=== PATIENT | male | born 1960 | race Caucasian/White ===

== ENCOUNTER 2017-01-01 13:21 | Emergency (ER) | payer BC ==
[2017-01-01 14:39] VITALS: BP 171/90
[2017-01-01] MEDS ORDERED: Ketorolac INJ* 60 MG/2 ML VIAL IM ONE (14:54)
[2017-01-01] MEDS ORDERED: Ondansetron ODT TAB* 4 MG PO ONE (14:54)
--- NOTE | 2017-01-01 14:59 | UC ---
UC General HPI - HPI Summary HPI Summary: Patient has had fever, body aches, n/v/d. cough and tight chest for the past few days. Decreased PO fluids and food due to nausea. he has a hx of smoking - History of Current Complaint Chief Complaint: UCGeneralIllness Stated Complaint: COUGH/DIZZY/CHILLS/BODY ACHES Time Seen by Provider: 01/01/17 14:48 Hx Obtained From: Patient Onset/Duration: Sudden Onset, Lasting Days Timing: Constant Onset Severity: Moderate Current Severity: Moderate Associated Signs & Symptoms: Positive: Cough, Dizziness, Diarrhea, Decreased Oral Intake, Fever, Headache, Nausea, Vomiting, Wheezing - Allergy/Home Medications Allergies/Adverse Reactions: Allergies Allergy/AdvReac Type Severity Reaction Status Date / Time No Known Allergies Allergy Verified 01/01/17 14:33 PMH/Surg Hx/FS Hx/Imm Hx Previously Healthy: Yes - Surgical History Surgical History: Yes Surgery Procedure, Year, and Place: LEFT SHOULDER REPLACMENT, RIGHT SHOULDER SCOPING, BOTH knee surgeries, Left 4th TOE AMPUTATION DUE TO INJURY, stimulator back, right knee replacement 06/2016 - Family History Known Family History: Positive: Cardiac Disease - parents, Hypertension - parents, Diabetes - parents - Social History Alcohol Use: Weekly Substance Use Type: None Substance Use Comment - Amount & Last Used: Last used in May Smoking Status (MU): Heavy Every Day Tobacco Smoker Amount Used/How Often: 1 PPD Length of Time of Smoking/Using Tobacco: 35 years Household Exposure Type: Cigarettes - Immunization History Most Recent Influenza Vaccination: 2013 Most Recent Tetanus Shot: within last 10 years Most Recent Pneumonia Vaccination: never Review of Systems Constitutional: Fever, Chills, Fatigue Skin: Negative Eyes: Negative Respiratory: Shortness Of Breath, Cough Cardiovascular: Negative Gastrointestinal: Vomiting, Diarrhea, Nausea Genitourinary: Negative Motor: Negative Neurovascular: Negative Musculoskeletal: Arthralgia, Myalgia Neurological: Headache Psychological: Negative All Other Systems Reviewed And Are Negative: Yes Physical Exam Triage Information Reviewed: Yes Appearance: Well-Nourished, Ill-Appearing, Pain Distress Vital Signs: Initial Vital Signs Temp 102.6 F 01/01/17 14:34 Pulse 120 01/01/17 14:34 Resp 18 01/01/17 14:34 BP 171/90 01/01/17 14:34 Pulse Ox 97 01/01/17 14:34 Vital Signs Reviewed: Yes Eye Exam: Normal Eyes: Positive: Conjunctiva Clear ENT: Positive: Pharyngeal erythema, TMs normal, Muffled/hoarse voice Dental Exam: Normal Neck exam: Normal Neck: Positive: Supple, Nontender, No Lymphadenopathy Respiratory: Positive: Chest non-tender, Normal breath sounds, No respiratory distress, Wheezing, Inspiration Cardiovascular Exam: Normal Cardiovascular: Positive: No Murmur, Pulses Normal, Tachycardia Abdominal Exam: Normal Abdomen Description: Positive: Nontender, No Organomegaly, Soft Bowel Sounds: Positive: Present Musculoskeletal Exam: Normal Musculoskeletal: Positive: Strength Intact, ROM Intact, No Edema Neurological Exam: Normal Neurological: Positive: Alert, Muscle Tone Normal Psychological Exam: Normal Skin Exam: Normal Course/Dx - Course Course Of Treatment: hx obtained, exam performed ,meds reviewed, rapid flu obtained, toradol and zofran given. - Differential Dx - Multi-Symptom Provider Diagnoses: LLL pneumonia. COPD. FEVER Discharge - Discharge Plan Condition: Stable Disposition: HOME Prescriptions: DOXYcycline CAP(*) [DOXYcycline 100MG CAP(*)] 100 mg PO BID #14 cap Ondansetron ODT TAB* [Zofran 4 MG Odt TAB*] 4 mg PO Q6H PRN #6 tab.odt PRN Reason: Nausea Patient Education Materials: Community Acquired Pneumonia (ED) Additional Instructions: 1. take the medication as prescribed. 2. REst 3. Tylenol for fever 4. Encourage fluid intake 5. Follow up with primary or ER if no improvement in 24-48 hours
--- NOTE | 2017-01-01 15:27 | RAD ---
HISTORY: Fever, cough, shortness of breath COMPARISONS: October 01, 2015 VIEWS: 4: Frontal dual-energy and lateral views of the chest. FINDINGS: CARDIOMEDIASTINAL SILHOUETTE: The cardiomediastinal silhouette is normal. CAT: The cat are normal. PLEURA: The costophrenic angles are sharp. No pleural abnormalities are noted. LUNG PARENCHYMA: The lungs are clear. ABDOMEN: The upper abdomen is clear. There is no subphrenic gas. BONES AND SOFT TISSUES: A spinal stimulator lead is noted OTHER: None. IMPRESSION: NO ACTIVE CARDIOPULMONARY DISEASE.
== END 2017-01-01 15:40 | disposition home or self-care (01) ==
LOC: UCCORT 13:21
DX: J18.9 Pneumonia, unspecified organism (principal); J44.9 Chronic obstructive pulmonary disease, unspecified; R50.9 Fever, unspecified; Z96.612 Presence of left artificial shoulder joint; Z96.651 Presence of right artificial knee joint; Z89.422 Acquired absence of other left toe(s); F17.210 Nicotine dependence, cigarettes, uncomplicated
CPT/HCPCS: 71020; 87502; 96372; 99212; A9270-GY; G0463; J1885

== ENCOUNTER 2017-07-15 14:21 | Emergency (ER) | payer BC ==
--- OUTSIDE RECORDS SUMMARY | 2017-07-15 15:23 | XMS REPORT ---
:1960 External Reference #:[id number] Author Organization [facility] [employer] Address [address] [place] [address] Phone [phone] Care Team Providers Name Role Phone Allyssa Hudson MD Care Team Information Field Installer Unavailable Allyssa Hudson MD Primary Care Physician Unavailable Payers Type Date Identification Numbers Payment Provider Subscriber Commercial Policy Number: [id number] [facility] Steven Holt PayID: [id number] [address] [address] [place] [address] Problems Description No Information Family History Date Family Member(s) Problem(s) Comments General Diabetes Social History Type Date Description Comments 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 Fluticasone 06/16/ Active Suspension 50mcg/Act 1unit 2 sprays Rajesh, Propionate 2017 s each nostril Silas, every day M.D. Gabapentin / Active Capsules 300mg 1 by mouth Unknown 0000 every day Pravastatin / Active Tablets 20mg 1 by mouth Unknown Sodium 0000 every day Fluoxetine HCL / Active Capsules 40mg daily Unknown 0000 Enalapril / Active Tablets 10mg once a day Unknown Maleate 0000 Pantoprazole / Active Solution 40mg daily Unknown Sodium 0000 Rec Seroquel / Active Tablets 25mg 1 by mouth Unknown 0000 one hour prior to sleep, if no improvement in 5 days may try two by mouth as needed upt o 4 at night Glimepiride / Active Tablets 2mg 1 by mouth Unknown 0000 every day Lantus / Active Solution 100Unit/M as directed Unknown 0000 L Amoxicillin / Active Capsules 250mg 1 by mouth Unknown 0000 three times a day Enalapril / Hx Tablets 10mg Unknown Maleate 0000 - 2017 Metformin HCL / Hx Tablets 500mg 180ta 1 po bid Unknown 0000 - bs 2017 Oxycodone HCL / Hx Tablets 15mg 30tab one tab q6h Unknown 0000 - s prn for . 2017 Crestor / Hx Tablets 10mg Unknown 0000 - 2017 Lansoprazole / Hx Capsules DR 30mg 90cap 1 po qd Unknown 0000 - s 2017 Oxycontin / Hx Tablets ER 40mg Unknown 0000 - 12HR 2017 Vital Signs Date Vital Result Comment 07/14/2017 Weight 277.12 lb Height 72 inches 6'0" BMI (Body Mass Index) 37.6 kg/m2 BP Systolic 145 mmHg BP Diastolic 97 mmHg Heart Rate 87 /min O2 % BldC Oximetry 98 % room air Body Temperature 98.3 F [place] Score 9 Pain Level 0 06/16/2017 Weight 272.12 lb Height 72 inches 6'0" BMI (Body Mass Index) 36.9 kg/m2 BP Systolic 150 mmHg BP Diastolic 88 mmHg Heart Rate 98 /min O2 % BldC Oximetry 99 % Body Temperature 97.8 F [place] Score 12 Pain Level 0 05/27/2011 Weight 265.00 lb Height 72 inches 6'0" BMI (Body Mass Index) 35.9 kg/m2 BP Systolic 152 mmHg BP Diastolic 80 mmHg Heart Rate 84 /min O2 % BldC Oximetry 96 % Body Temperature 97.9 F Results Description No Information Procedures Description No Information Encounters Type Date Location Provider CPT E/M Dx Office Visit 07/14/2017 11:30a [place] [address] G47.33 H65.03 Office Visit 06/16/2017 10:00a [place] [address] G47.33 J34.3 H69.93 Office Visit 05/27/2011 3:30p [place] [address] 327.23 Plan of Care Future Appointment(s):08/03/2017 1:00 pm - Radha Mcnulty NP at Main Office
--- OUTSIDE RECORDS SUMMARY | 2017-07-15 15:23 | XMS REPORT ---
:1960 External Reference #:[id number] Author Organization [facility] [employer] Design [employer] Address [address] [place] [address] Phone [phone] Care Team Providers Name Role Phone Allyssa Hudson MD Care Team Information Senior Coldfusion Developer Unavailable Allyssa Hudson MD Primary Care Physician Unavailable Payers Type Date Identification Numbers Payment Provider Subscriber Commercial Policy Number: [id number] [facility] Steven Holt PayID: [id number] [address] [address] [place] [address] Problems Description No Information Family History Date Family Member(s) Problem(s) Comments General Diabetes Social History Type Date Description Comments Marital Status Occupation [employer] Cigarette Use Current Cigarette Smoker 1 Pack Daily ETOH Use 4-7 Days Per Week Recreational Drug Use Has Used In Past Allergies, Adverse Reactions, Alerts Date Description Reaction Status Severity Comments 05/27/2011 NKDA active Medications Medication Date Status Form Strength Qnty SIG Indications Ordering Provider Fluticasone 06/16/ Active Suspension 50mcg/Act 1unit 2 sprays Mena, Propionate 2017 s each nostril Silas, every [...] 100Unit/M as directed Unknown 0000 L Amoxicillin 00/00/ Active Capsules 250mg 1 by mouth Unknown [...] % room air Body Temperature 98.3 F [place] Score 9 Pain Level 0 06/16/2017 Weight 272.12 lb Height 72 inches 6'0" BMI (Body Mass Index) 36.9 kg/m2 BP Systolic 150 mmHg BP Diastolic 88 mmHg Heart Rate 98 /min O2 % BldC Oximetry 99 % Body Temperature 97.8 F [place] Score 12 Pain Level 0 05/27/2011 Weight 265.00 lb Height 72 inches 6'0" BMI (Body Mass Index) 35.9 kg/m2 BP Systolic 152 mmHg BP Diastolic 80 mmHg Heart Rate 84 /min O2 % BldC Oximetry 96 % Body Temperature 97.9 F Results Description No Information Procedures Description No Information Encounters Type Date Location Provider CPT E/M Dx Office Visit 06/16/2017 10:00a [place] [address] G47.33 J34.3 H69.93 Office Visit 05/27/2011 3:30p [place] [address] 327.23 Plan of Care No Information Available
--- OUTSIDE RECORDS SUMMARY | 2017-07-15 15:26 | XMS REPORT ---
:1960 External Reference #:[id number] Author Organization [facility] [employer] Model Maker And Tester Address [address] [place] [address] Phone [phone] Care Team Providers Name Role Phone Allyssa Hudson MD Care Team Information Automotive Project Engineer Unavailable Allyssa Hudson MD Primary Care Physician Unavailable Payers Type Date Identification Numbers Payment Provider Subscriber Commercial Policy Number: [id number] [facility] Steven Holt PayID: [id number] [address] [address] [place] [address] Problems Description No Information Family History Date Family Member(s) Problem(s) Comments General Diabetes Social History Type Date Description Comments Marital 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 2018 Crestor / Hx Tablets 10mg Unknown 0000 - 2017 Lansoprazole / Hx Capsules DR 30mg 90cap 1 po qd Unknown 0000 - s 2017 Oxycontin / Hx Tablets ER 40mg Unknown 0000 - 12HR 2017 Vital Signs Date Vital Result Comment 06/16/2017 Weight 272.12 lb Height 72 inches 6'0" BMI (Body Mass Index) 36.9 kg/m2 BP Systolic 150 mmHg BP Diastolic 88 mmHg Heart Rate 98 /min O2 % BldC Oximetry 99 % Body Temperature 97.8 F [place] Score 12 Pain Level 0 05/27/2011 Weight [...] 06/16/2017 10:00a [place] [address] G47.33 J34.3 H69.93 Office Visit 05/27/2011 3:30p [place] [address] 327.23 Plan of Care Future Appointment(s):07/12/2017 10:30 am - Radha Mcnulty NP at Main Office
--- OUTSIDE RECORDS SUMMARY | 2017-07-15 15:26 | XMS REPORT ---
:1960 External Reference #:[id number] Author Organization [facility] Quality System Manager Address [address] [place] [address] Phone [phone] Care Team Providers Name Role Phone Allyssa Hudson MD Care Team Information Street Light Lamp Cleaner Unavailable Allyssa Hudson MD Primary Care Physician Unavailable Payers Type Date Identification Numbers Payment Provider Subscriber Commercial Policy Number: [id number] [facility] Steven Wur PayID: [id number] [address] [address] [place] [address] Problems Description No Information Family History Date Family Member(s) Problem(s) Comments General Diabetes Social History Type Date Description Comments 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 Cigarette Use Current Cigarette Smoker 1 Pack Daily ETOH Use 4-7 Days Per Week Recreational Drug Use Has Used In Past Allergies, Adverse Reactions, Alerts Date Description Reaction Status Severity Comments 05/27/2011 NKDA active Medications Medication Date Status Form Strength Qnty SIG Indications Ordering Provider Gabapentin 00/00/ Active Capsules 300mg 1 by mouth Unknown 0000 every day Pravastatin 00/00/ Active Tablets 20mg 1 by mouth Unknown Sodium 0000 every day Fluoxetine HCL / Active Capsules 40mg daily Unknown 0000 Enalapril 00/ Active Tablets 10mg once a day Unknown Maleate 0000 Pantoprazole 0000/ Active Solution 40mg daily Unknown Sodium 0000 Rec Seroquel 00/ Active Tablets 25mg 1 by mouth Unknown 0000 one hour prior to sleep, if no improvement in 5 days may try two by mouth as needed upt o 4 at night Glimepiride 00/00/ Active Tablets 2mg 1 by mouth Unknown 0000 every day Lantus 0000/ Active Solution 100Unit/ML as directed Unknown 0000 Enalapril /00/ Hx Tablets 10mg Unknown Maleate 0000 - 2017 Metformin HCL / Hx Tablets 500mg 180ta 1 po bid Unknown 0000 - bs 2017 Oxycodone HCL / Hx Tablets 15mg 30tab one tab q6h Unknown 0000 - s prn for . 2018 Crestor / Hx Tablets 10mg Unknown 0000 - 2017 Lansoprazole / Hx Capsules 30mg 90cap 1 po qd Unknown 0000 - DR s 2017 Oxycontin / Hx Tablets ER 40mg Unknown 0000 - 12HR 2017 Vital Signs Date Vital Result Comment 06/16/2017 Weight 272.12 lb Height 72 inches 6'0" BMI (Body Mass Index) 36.9 kg/m2 BP Systolic 150 mmHg BP Diastolic 88 mmHg Heart Rate 98 /min O2 % BldC Oximetry 99 % Body Temperature 97.8 F [place] Score 12 Pain Level 0 05/27/2011 Weight 265.00 lb Height 72 inches 6'0" BMI (Body Mass Index) 35.9 kg/m2 BP Systolic 152 mmHg BP Diastolic 80 mmHg Heart Rate 84 /min O2 % BldC Oximetry 96 % Body Temperature 97.9 F Results Description No Information Procedures Description No Information Encounters Type Date Location Provider CPT E/M Dx Office Visit 05/27/2011 3:30p [place] [address] 327.23 Plan of Care No Information Available
[2017-07-15 15:33] VITALS: BP 137/84
--- NOTE | 2017-07-15 15:53 | UC ---
Skin Complaint HPI - HPI Summary HPI Summary: 56 yo male with right middle finger pain and swelling x 3 days He has DM - History of Current Complaint Chief Complaint: UCSkin Time Seen by Provider: 07/15/17 15:34 Stated Complaint: MIDDLE FINGER RIGHT HAND COMP Hx Obtained From: Patient Onset/Duration: Gradual Onset, Lasting Days Skin Exposure Onset/Duration: Hours Ago, Days Ago Onset Severity: Mild Current Severity: Moderate Pain Intensity: 1 Pain Scale Used: 0-10 Numeric Location: Discrete Character: Pain, Redness, Raised, Painful Aggravating Factor(s): Touch Alleviating Factor(s): Other - elevation - Allergy/Home Medications Allergies/Adverse Reactions: Allergies Allergy/AdvReac Type Severity Reaction Status Date / Time No Known Allergies Allergy Verified 07/15/17 15:29 Home Medications: Home Medications Amoxicillin PO (*) [Amoxicillin 875 MG (*)] 875 mg PO BID 07/15/17 [History Confirmed 07/15/17] Naltrexone TAB* 100 mg PO DAILY 07/15/17 [History Confirmed 07/15/17] Review of Systems Constitutional: Negative Skin: Negative Eyes: Negative ENT: Negative Respiratory: Negative Cardiovascular: Negative Gastrointestinal: Negative Genitourinary: Negative Motor: Negative Neurovascular: Negative Musculoskeletal: Negative Neurological: Negative Psychological: Negative Is Patient Immunocompromised?: No All Other Systems Reviewed And Are Negative: Yes PMH/Surg Hx/FS Hx/Imm Hx Endocrine History: Diabetes, Dyslipidemia Cardiovascular History: Cardiac Disease, Hypertension GI/ History: Gastroesophageal Reflux Psychological History: Anxiety - Surgical History Surgical History: Yes Surgery Procedure, Year, and Place: LEFT SHOULDER REPLACMENT, RIGHT SHOULDER SCOPING, BOTH knee surgeries, Left 4th TOE AMPUTATION DUE TO INJURY, stimulator back, right knee replacement 06/2016 - Family History Known Family History: Positive: Cardiac Disease - parents, Hypertension - parents, Diabetes - parents - Social History Alcohol Use: None Substance Use Type: None Substance Use Comment - Amount & Last Used: Last used in May Smoking Status (MU): Heavy Every Day Tobacco Smoker Type: Cigarettes Amount Used/How Often: 1 PPD Length of Time of Smoking/Using Tobacco: 35 years Household Exposure Type: Cigarettes - Immunization History Most Recent Influenza Vaccination: 2013 Most Recent Tetanus Shot: within last 10 years Most Recent Pneumonia Vaccination: never Physical Exam Triage Information Reviewed: Yes Appearance: Well-Appearing, No Pain Distress, Well-Nourished Vital Signs: Initial Vital Signs Temp 98.5 F 07/15/17 15:25 Pulse 81 07/15/17 15:25 Resp 18 07/15/17 15:25 BP 137/84 07/15/17 15:25 Pulse Ox 98 07/15/17 15:25 Vital Signs Reviewed: Yes Eyes: Positive: Conjunctiva Clear ENT: Negative: Nasal congestion, Nasal drainage, Muffled voice, Hoarse voice Neck: Positive: Supple, Nontender, No Lymphadenopathy Respiratory: Positive: Lungs clear, Normal breath sounds, No respiratory distress, No accessory muscle use Cardiovascular: Positive: RRR, No Murmur Musculoskeletal: Positive: ROM Intact, No Edema Neurological: Positive: Alert Psychological Exam: Normal Skin Exam: Other - see image Course/Dx - Diagnoses Provider Diagnoses: paronychia right middle finger Procedures - Procedure Summary Procedure Summary: Incision and drainage of right middle finger PARONYCHIA Time out sterile prep no analgesic incised with 18 guage needle 3 drops of yonis pus expressed tolerated procedure well bandaid Discharge - Discharge Plan Condition: Stable Disposition: HOME Prescriptions: Doxycycline Hyclate 100 mg PO BID #14 tablet. Patient Education Materials: Paronychia (ED) Referrals: Allyssa Hudson MD [Primary Care Provider] - 3 Days (if not better ) Images Hands: 1 - red/swollen/pointing
== END 2017-07-15 16:03 | disposition home or self-care (01) ==
LOC: UCCORT 14:21
DX: L03.011 Cellulitis of right finger (principal); E11.9 Type 2 diabetes mellitus without complications; F17.210 Nicotine dependence, cigarettes, uncomplicated
CPT/HCPCS: 10060; 87070; 87076; 87077; 87186; 87205; 87640; 87641; 99212; G0463

== ENCOUNTER 2017-12-09 15:36 | Emergency (ER) | payer BC ==
[2017-12-09 16:20] VITALS: BP 151/87
--- NOTE | 2017-12-09 16:49 | UC ---
Lower Extremity/Ankle HPI - HPI Summary HPI Summary: Pt c/o sudden onset or right foot pain, that began yesterday morning at base of left second and third toes. Pt c/o left foot swelling, rde streaking from base of left second and third twos that has begun to extend proximally to travel up medial aspect of left ankle. Pt has neuropathy and reports tht he has limited feeling in feet. Is concerned about DVT. - History of Current Complaint Chief Complaint: UCLowerExtremity Stated Complaint: LEFT FOOT PAIN Time Seen by Provider: 12/09/17 16:30 Hx Obtained From: Patient Onset/Duration: Sudden Onset, Lasting Days, Worse Since - osnet Severity Initially: Mild Severity Currently: Moderate Pain Intensity: 7 Aggravating Factor(s): Standing, Ambulation Alleviating Factor(s): Nothing Able to Bear Weight: Yes - Risk Factors Gout Risk Factors: Age Over 40, Male, Diabetes, Hypertension, Hyperlipidemia, Obesity DVT Risk Factors: Family Hx of Clotting Disorder Septic Arthritis Risk Factor: Negative - Allergies/Home Medications Allergies/Adverse Reactions: Allergies Allergy/AdvReac Type Severity Reaction Status Date / Time No Known Allergies Allergy Verified 12/09/17 16:16 Home Medications: Home Medications Ibuprofen TAB* [Advil TAB*] 600 mg PO Q6H PRN 12/09/17 [History Confirmed ] PMH/Surg Hx/FS Hx/Imm Hx Previously Healthy: Yes Endocrine History: Diabetes, Dyslipidemia Cardiovascular History: Hypertension - Surgical History Surgical History: Yes Surgery Procedure, Year, and Place: LEFT SHOULDER REPLACMENT, RIGHT SHOULDER SCOPING, BOTH knee surgeries, Left 4th TOE AMPUTATION DUE TO INJURY, stimulator back, right knee replacement 06/2016 - Family History Known Family History: Positive: Cardiac Disease - parents, Hypertension - parents, Diabetes - parents - Social History Occupation: Employed Full-time Lives: With Family Alcohol Use: None Substance Use Type: None Substance Use Comment - Amount & Last Used: Last used in May Smoking Status (MU): Heavy Every Day Tobacco Smoker Type: Cigarettes Amount Used/How Often: 1 PPD Length of Time of Smoking/Using Tobacco: 35 years Have You Smoked in the Last Year: Yes Household Exposure Type: Cigarettes - Immunization History Most Recent Influenza Vaccination: 2013 Most Recent Tetanus Shot: within last 10 years Most Recent Pneumonia Vaccination: never Review of Systems Constitutional: Negative Skin: Other - erythema Eyes: Negative ENT: Negative Respiratory: Negative Cardiovascular: Negative Gastrointestinal: Negative Genitourinary: Negative Motor: Negative Neurovascular: Decreased Sensation - baseline due to diabetic neuropathy Musculoskeletal: Arthralgia - left foot and ankle, Edema - left foot and ankle Neurological: Negative Psychological: Negative Is Patient Immunocompromised?: No All Other Systems Reviewed And Are Negative: Yes Physical Exam Triage Information Reviewed: Yes Appearance: Pain Distress Vital Signs: Initial Vital Signs Temp 98.9 F 12/09/17 16:13 Pulse 83 12/09/17 16:13 Resp 15 12/09/17 16:13 BP 151/87 12/09/17 16:13 Pulse Ox 98 12/09/17 16:13 Vital Signs Reviewed: Yes Eye Exam: Normal ENT Exam: Normal Dental Exam: Normal Neck exam: Normal Respiratory: Positive: No respiratory distress Musculoskeletal Exam: Other Musculoskeletal: Positive: ROM Limited @, Edema @ - left foot and ankle, nonpitting Neurological Exam: Normal Neurological: Positive: Alert Psychological Exam: Normal Skin Exam: Other - mild erythema ~ 2 cm diameter base of left second toe circular, with mild erythema line ~ 5mm wide that extends proximal ad medial to left medial malleoulus. Pt c/o significant tenderness at base of left 2nd and 3rd toes, generalized non pitting edema to left foot and ankle. skin is warm and pink. temperature equal on foot, ankle and thigh Lower Extremity Course/Dx - Differential Dx/Diagnosis Differential Diagnosis/HQI/PQRI: Cellulitis, DVT, Gout, Infection Provider Diagnoses: gout. cellulitis Discharge - Sign-Out/Discharge Documenting (check all that apply): Patient Departure - Discharge Plan Condition: Stable Disposition: HOME Prescriptions: Cephalexin CAP* [Keflex 500 CAP*] 500 mg PO Q8H #30 cap Colchicine* [Colcrys*] 0.6 mg PO DAILY #3 tab Patient Education Materials: Cellulitis (ED), Low Purine Diet (ED), Gout (ED) Referrals: Allyssa Hudson MD [Primary Care Provider] - If Needed - Billing Disposition and Condition Condition: STABLE Disposition: Home
== END 2017-12-09 17:03 | disposition home or self-care (01) ==
LOC: UCCORT 15:36
DX: M10.9 Gout, unspecified (principal); L03.116 Cellulitis of left lower limb; F17.210 Nicotine dependence, cigarettes, uncomplicated
CPT/HCPCS: 99212; G0463